=== PATIENT | female | born 1960 | race African-American/Black ===

== ENCOUNTER 2023-09-25 04:57 | Day surgery (SDC) | payer OTHER ==
[2023-09-21 14:07] LABS: BILIRUBIN,URINE NEGATIVE (Neg); CLARITY,URINE CLOUDY (Clear); COLOR,URINE YELLOW (Yellow); GLUCOSE, URINE NEGATIVE (Neg); KETONES,URINE TRACE mg/dl (Neg); LEUKOCYTE ESTERASE ,URINE NEGATIVE (Neg); NITRITES, URINE NEGATIVE (Neg); OCCULT BLOOD,URINE NEGATIVE (Neg); PROTEIN,URINE NEGATIVE (Neg)
[2023-09-21 14:18] LABS: ANION GAP 7 (8-16); BLOOD UREA NITROGEN 23 MG/DL (7-18); CALCIUM 8.8 MG/DL (8.5-10.1); CHLORIDE 105 MMOL/L (99-107); CREATININE 0.92 MG/DL (0.40-0.90); GLUCOSE 103 MG/DL (70-104); POTASSIUM 3.5 MMOL/L (3.5-5.1); SODIUM 142 MMOL/L (135-145); TOTAL CARBON DIOXIDE 30.4 MMOL/L (24-32); eGFR 74 ML/MIN
[2023-09-21 14:20] LABS: BASOPHILS % (AUTO) 0.6 % (0-1); EOSINOPHILS # (AUTO) 0.2 X10'3 (0-0.9); HEMOGLOBIN 11.8 g/dl (12.0-16.0); LYMPHOCYTES # (AUTO) 1.8 X10'3 (1.1-4.8); MONOCYTES # (AUTO) 0.6 X10'3 (0-0.9); NEUTROPHILS # (AUTO) 4.6 X10'3 (1.8-7.7); WHITE BLOOD COUNT 7.3 X10'3 (4.5-11.0)
[2023-09-21 14:21] LABS: EOSINOPHILS % (AUTO) 2.3 % (0-6); HEMATOCRIT 36.3 % (35.0-45.0); LYMPHOCYTES % (AUTO) 25.4 % (21-51); MEAN CORPUSCULAR HEMOGLOBIN 30.1 PG (27.0-31.0); MEAN CORPUSCULAR HGB CONC 32.5 g/dL (33.0-36.5); MEAN CORPUSCULAR VOLUME 92.6 FL (78-98); MEAN PLATELET VOLUME 10.1 FL (7.4-10.4); MONOCYTES % (AUTO) 8.2 % (2-12); NEUTROPHILS % (AUTO) 63.5 % (42-75); PLATELET COUNT 219 X10'3 (140-440); RED BLOOD COUNT 3.92 X10'6 (4.20-5.60); RED CELL DISTRIBUTION WIDTH 13.5 % (11.5-14.5)
[2023-09-21 14:34] LABS: MUCUS STRANDS MANY /LPF (Neg); SQUAMOUS EPITHELIAL CELL,UR MODERATE /LPF (FEW); UA COLLECTION TYPE CLN CATCH MIDSTREAM
[2023-09-21 14:35] LABS: BACTERIA,URINE 1+ /HPF (Neg); RBC,URINE 0-2 /HPF (0-2); WBC,URINE 0-4 /HPF (0-4)
[2023-09-21 14:58] LABS: APTT 30 SECONDS (22-32); PROTHROMBIN TIME 10.8 SECONDS (9.0-12.0)
[2023-09-25] VITALS (11 sets, daily range): BP systolic 103–133; BP diastolic 61–74; PULSE 59–90; RESP 12–18; TEMP 98.1; O2SAT 93–98
[~2023-09-25] VITALS: Ht 154.9 cm; Wt 87.0 kg
[2023-09-25] MEDS ORDERED: AMLO10TA13 PO (05:18)
[2023-09-25] MEDS ORDERED: ATOR40TA72 PO (05:18)
[2023-09-25] MEDS ORDERED: LISI20TA28 PO (05:18)
[2023-09-25] MEDS ORDERED: APIX5TAB3 PO (05:18)
[2023-09-25] MEDS ORDERED: midazolam 1 mg/ML 2ml injection ONE ×2 (05:49→06:26)
[2023-09-25] MEDS ORDERED: ceFAZolin 1000mg inj ONE ×2 (05:49→06:11)
[2023-09-25] MEDS ORDERED: LIDOcaine 1% W/epiNEPHrine 1:100,000 20ml vial ONE (05:49)
[2023-09-25] MEDS ORDERED: fentaNYL/PF 50MCG/1 ML 2ML syringe ONE (05:49)
[2023-09-25] MEDS: HYDROcodone/acetaminophen 10/325mg tab PO ONE (07:43)
[2023-09-25] MEDS: ceFAZolin/D5W- 1GM premix 50 ML IV SCH (07:46)
[2023-09-25] MEDS: normal saline 1000ml 1,000 ML IV SCH (07:46)
== END 2023-09-25 10:55 | disposition home or self-care (01) ==
LOC: SSTAY O 04:57
PROVIDERS: ATTEND Student in an Organized Health Care Education/Training Program
DX: I49.5 Sick sinus syndrome (principal); I10 Essential (primary) hypertension; E78.00 Pure hypercholesterolemia, unspecified; I48.91 Unspecified atrial fibrillation; I27.20 Pulmonary hypertension, unspecified; I25.2 Old myocardial infarction; I36.1 Nonrheumatic tricuspid (valve) insufficiency; Z86.73 Personal history of transient ischemic attack (TIA), and cerebral infarction without residual deficits; Z79.01 Long term (current) use of anticoagulants; Z79.899 Other long term (current) drug therapy
CPT/HCPCS: 33208; 36415; 80048; 81001; 85025; 85610; 85730; 93005; 99152; 99153; C1785; C1898; J0690; J2250; J3010; J3490; J7030; A4565; A4615

== ENCOUNTER 2023-12-11 12:30 | Day surgery (SDC) | payer OTHER ==
[2023-12-05 15:43] LABS: BILIRUBIN,URINE SMALL (Neg); CLARITY,URINE SLIGHTLY CLOUDY (Clear); COLOR,URINE YELLOW (Yellow); GLUCOSE, URINE NEGATIVE (Neg); KETONES,URINE TRACE mg/dl (Neg); LEUKOCYTE ESTERASE ,URINE NEGATIVE (Neg); NITRITES, URINE NEGATIVE (Neg); OCCULT BLOOD,URINE NEGATIVE (Neg); PROTEIN,URINE TRACE mg/dl (Neg)
[2023-12-05 15:47] LABS: BASOPHILS % (AUTO) 0.5 % (0-1); EOSINOPHILS # (AUTO) 0.1 X10'3 (0-0.9); EOSINOPHILS % (AUTO) 2.1 % (0-6); HEMATOCRIT 33.6 % (35.0-45.0); LYMPHOCYTES # (AUTO) 1.6 X10'3 (1.1-4.8); MEAN CORPUSCULAR HEMOGLOBIN 30.6 PG (27.0-31.0); MEAN CORPUSCULAR HGB CONC 32.8 g/dL (33.0-36.5); MEAN CORPUSCULAR VOLUME 93.2 FL (78-98); MEAN PLATELET VOLUME 9.5 FL (7.4-10.4); MONOCYTES # (AUTO) 0.7 X10'3 (0-0.9); MONOCYTES % (AUTO) 9.6 % (2-12); NEUTROPHILS # (AUTO) 4.3 X10'3 (1.8-7.7); NEUTROPHILS % (AUTO) 63.8 % (42-75); PLATELET COUNT 196 X10'3 (140-440); WHITE BLOOD COUNT 6.8 X10'3 (4.5-11.0)
[2023-12-05 15:49] LABS: UA COLLECTION TYPE CLN CATCH MIDSTREAM
[2023-12-05 15:59] LABS: SQUAMOUS EPITHELIAL CELL,UR FEW /LPF (FEW); WBC,URINE 0-4 /HPF (0-4)
[2023-12-05 16:04] LABS: BACTERIA,URINE FEW /HPF (Neg); RBC,URINE NONE SEEN /HPF (0-2)
[2023-12-05 16:05] LABS: MUCUS STRANDS MODERATE /LPF (Neg)
[2023-12-05 16:20] LABS: ALBUMIN 3.5 G/DL (3.4-5.0); ANION GAP 7 (8-16); BLOOD UREA NITROGEN 21 MG/DL (7-18); BUN/CREATININE RATIO 19.4 (10.0-20.0); CALCIUM 8.3 MG/DL (8.5-10.1); CHLORIDE 104 MMOL/L (99-107); CREATININE 1.08 MG/DL (0.40-0.90); GLUCOSE 103 MG/DL (70-104); POTASSIUM 3.1 MMOL/L (3.5-5.1); SODIUM 142 MMOL/L (135-145); TOTAL CARBON DIOXIDE 30.8 MMOL/L (24-32); eGFR 62 ML/MIN
[2023-12-05 16:24] LABS: APTT 30 SECONDS (22-32); PROTHROMBIN TIME 10.7 SECONDS (9.0-12.0)
[2023-12-11] VITALS (10 sets, daily range): BP systolic 96–129; BP diastolic 51–86; PULSE 60–74; RESP 14–22; TEMP 98.4; O2SAT 96–100
[~2023-12-11] VITALS: Ht 154.9 cm; Wt 86.2 kg
[~2023-12-11 12:30] MED LIST: AMLO10TA13 PO; APIX5TAB3 PO; ATOR40TA72 PO; LISI20TA28 PO
[2023-12-11] MEDS ORDERED: LIDOcaine 1% W/epiNEPHrine 1:100,000 20ml vial ONE (14:48)
[2023-12-11] MEDS ORDERED: ceFAZolin 1000mg inj ONE ×3 (14:49→15:06)
[2023-12-11] MEDS ORDERED: fentaNYL/PF 50MCG/1 ML 2ML syringe ONE ×2 (14:50→15:28)
[2023-12-11] MEDS ORDERED: midazolam 1 mg/ML 2ml injection ONE ×3 (14:50→15:28)
[2023-12-11] MEDS ORDERED: CEPH-585 PO (16:50)
[2023-12-11] MEDS: HYDROcodone/acetaminophen 10/325mg tab PO ONE (18:04)
[2023-12-11] MEDS: normal saline 1000ml 1,000 ML IV SCH (18:05)
== END 2023-12-11 18:10 | disposition home or self-care (01) ==
LOC: SSTAY O 12:30
PROVIDERS: ATTEND Student in an Organized Health Care Education/Training Program
DX: T82.120A Displacement of cardiac electrode, initial encounter (principal); I44.39 Other atrioventricular block; I10 Essential (primary) hypertension; E78.00 Pure hypercholesterolemia, unspecified; I48.91 Unspecified atrial fibrillation; I25.2 Old myocardial infarction; Z86.73 Personal history of transient ischemic attack (TIA), and cerebral infarction without residual deficits; Z79.01 Long term (current) use of anticoagulants; Z79.899 Other long term (current) drug therapy; Y71.2 Prosthetic and other implants, materials and accessory cardiovascular devices associated with adverse incidents; Y92.89 Other specified places as the place of occurrence of the external cause
CPT/HCPCS: 33215; 36415; 80048; 81001; 85025; 85610; 85730; 93005; 99152; 99153; J0690; J2250; J3010; J3490; J7030; A4565; A6258